=== PATIENT | male | born 1950 | race Caucasian/White ===

== ENCOUNTER 2021-08-14 12:49 | Day surgery (SDC) | payer MEDICARE, OTHER ==
[2021-08-13 08:38] VITALS: BMI 29.2
[~2021-08-14 12:49] MED LIST: MOXIFLOXACIN HCL 0.5% DROPS 3 ML BTL OP PRN; TETRACAINE 0.5% OPHTH (PF) DROPS 4 ML BTL OP PRN; TIMOLOL 0.5% OPHTH DROPS 5 ML BTL OP PRN
[2021-08-14] MEDS: PHENYLEPHRINE 2.5% OPHTH DRP 2ML OP PRN ×4 (13:37→13:57)
[2021-08-14] MEDS: CYCLOPENTOLATE 1% OPHTH SOLN 2 ML BTL OP PRN ×4 (13:42→14:03)
[2021-08-14 13:46] VITALS: TEMP 98.9
[2021-08-14] MEDS ORDERED: LIDOCAINE 1% (10MG/ML) FOR IV START INTRADERMA ONE (13:49)
[2021-08-14] MEDS ORDERED: LACTATED RINGERS 1,000 ML IV ONE (13:49)
[2021-08-14] MEDS ORDERED: MIDAZOLAM 2 MG/2 ML VIAL ONE (14:51)
[2021-08-14] MEDS ORDERED: fentaNYL (PF) 50 MCG/ML 2 ML AMP ONE (14:51)
[2021-08-14] MEDS ORDERED: HYALURONATE SODIUM INTRAOCULAR 1 EACH SYRINGE (12MG/ML) INTRAOCULA ONE (15:03)
[2021-08-14] MEDS ORDERED: BALANCED SALT IRRIG SOLN COMB2 15 ML IRRIG.SOLN INTRAOCULA ONE (15:03)
[2021-08-14] MEDS ORDERED: LIDOCAINE 1% (PF) 10MG/ML VIAL SQ ONE (15:03)
[2021-08-14] MEDS ORDERED: EPINEPHrine (PF) 0.3 ML in BALANCED SALT IRRIG SOLN COMB2 500 ML IRRIGATION ONE (15:04)
--- NOTE | 2021-08-14 15:15 | P.OP ---
Date of Procedure: 08/14/21 Preoperative Diagnosis: NS & CS Postoperative Diagnosis: same Procedure(s) Performed: PIOL, OS Implants: [id number] Anesthesia: MAC Surgeon: Lalit Bob Pathology: none sent Condition: stable Disposition: same day Indications for Procedure: blurry vision Operative Findings: no complications
[2021-08-14 15:39] VITALS: BP 112/67; PULSE 72; RESP 16
--- NOTE | 2021-08-14 18:39 | OP ---
OPERATIVE REPORT DATE OF SURGERY: 08/14/2021. PROCEDURE: Phacoemulsification of cataract and intraocular lens implant of the left eye. PREOPERATIVE DIAGNOSIS: Nuclear sclerosis and cortical sclerosis. POSTOPERATIVE DIAGNOSIS: Nuclear sclerosis and cortical sclerosis. ESTIMATED BLOOD LOSS: Zero. SPECIMEN TAKEN: None. NARRATIVE: After obtaining the appropriate consent, the patient was brought to the Operating Room where the patient was placed under cardiac monitoring and prepped and draped in the usual sterile manner. At the 5 o'clock position a 15 degree super sharp blade was used to create a paracentesis followed by instillation of 1% Xylocaine MPF 50:50 mix with BSS into the anterior chamber. This was followed by Amvisc to stabilize the anterior chamber. At the 3 o'clock position a self-sealing corneal flap incision was created using 2.8 mm gordon keratome. A cystotome was used to initiate a continuous tear capsulorrhexis which was completed with the Utrata forceps. A Binkhorst cannula was used to hydrodissect the lens nucleus followed by hydrodelineation. Phacoemulsification of the lens was performed utilizing phacochop in 17.13 seconds at 18% power. The remaining cortical material was removed using the irrigation aspiration mode followed by additional 1% Xylocaine MPF into the anterior chamber followed by viscoelastic to stabilize the capsular bag. A Bausch [employer] Lomb MX60E 20.5 diopter posterior chamber intraocular lens was placed into the capsular bag without difficulty. The remaining viscoelastic material was removed from the anterior chamber with the irrigation/aspiration. Balanced salt solution was used to normalize the intraocular pressure. The incision was checked for watertight integrity. The patient then received two drops of 0.5% timolol followed by two drops Vigamox, was lightly patched and shielded in the usual manner. There were no complications from the procedure. The patient tolerated the procedure well and was returned to recovery in good condition. MMODL / IJN: [id number] /
== END 2021-08-14 15:47 | disposition home or self-care (01) ==
LOC: OR 12:49 → EDBD 14:15 → OR 15:47
PROVIDERS: ATTEND Ophthalmology
DX: H25.12 Age-related nuclear cataract, left eye (principal)
CPT/HCPCS: 66984; C1780; J2250; J0171; J3010; J2001

== ENCOUNTER 2021-09-04 07:16 | Day surgery (SDC) | payer MEDICARE, OTHER ==
[2021-09-02 11:14] VITALS: BMI 29.4
[2021-09-04] MEDS ORDERED: LACTATED RINGERS 1,000 ML IV SCH (07:52)
[2021-09-04] MEDS ORDERED: LIDOCAINE 1% (10MG/ML) FOR IV START INTRADERMA PRN (07:52)
[2021-09-04] MEDS: CYCLOPENTOLATE 1% OPHTH SOLN 2 ML BTL OP PRN ×3 (08:01→08:13)
[2021-09-04] MEDS: PHENYLEPHRINE 2.5% OPHTH DRP 2ML OP PRN ×3 (08:04→08:16)
[2021-09-04 08:14] VITALS: TEMP 97.7
[2021-09-04] MEDS ORDERED: MIDAZOLAM 2 MG/2 ML VIAL ONE (09:03)
[2021-09-04] MEDS ORDERED: fentaNYL (PF) 50 MCG/ML 2 ML AMP ONE (09:03)
[2021-09-04] MEDS ORDERED: BALANCED SALT IRRIG SOLN COMB2 15 ML IRRIG.SOLN IRRIGATION ONE (09:06)
[2021-09-04] MEDS ORDERED: HYALURONATE SODIUM INTRAOCULAR 1 EACH SYRINGE (12MG/ML) INTRAOCULA ONE (09:07)
[2021-09-04] MEDS ORDERED: LIDOCAINE 1% (PF) 10MG/ML VIAL MISCELLANE ONE (09:07)
[2021-09-04] MEDS ORDERED: EPINEPHrine (PF) 0.3 ML in BALANCED SALT IRRIG SOLN COMB2 500 ML IRRIGATION ONE (09:23)
--- NOTE | 2021-09-04 09:38 | P.OP ---
Date of Procedure: 09/04/21 Preoperative Diagnosis: NS & CS Postoperative Diagnosis: same Procedure(s) Performed: PIOL, OD Implants: [id number] 20.00 Anesthesia: MAC Surgeon: Lalit Bob Pathology: none sent Condition: stable Disposition: same day Indications for Procedure: blurry vision Operative Findings: no complications
[2021-09-04 09:59] VITALS: RESP 16
[2021-09-04 10:00] VITALS: BP 128/76; PULSE 82
--- NOTE | 2021-09-05 13:00 | OP ---
OPERATIVE REPORT DATE OF SURGERY: September 04, 2021. PROCEDURES: Phacoemulsification of cataract and intraocular lens implant of the right eye. SURGEON: Dr. Lalit Bob PREOPERATIVE DIAGNOSIS: Nuclear sclerosis and cortical sclerosis POSTOPERATIVE DIAGNOSIS: Nuclear sclerosis and cortical sclerosis. OPERATION: Clear cornea phacoemulsification of cataract right OD eye. ESTIMATED BLOOD LOSS: Zero. SPECIMEN TAKEN: None. NARRATIVE: After obtaining the appropriate consent, the patient was brought to the Operating Room where the patient was placed under cardiac monitoring and prepped and draped in the usual sterile manner. At the 11 o'clock position a 15 degree super sharp blade was used to create a paracentesis followed by instillation of 1% Xylocaine MPF 50:50 mix with BSS into the anterior chamber. This was followed by Amvisc to stabilize the anterior chamber. At the 9 o'clock position a self-sealing corneal flap incision was created using 2.8 mm gordon keratome. A cystotome was used to initiate a continuous tear capsulorrhexis which was completed with the Utrata forceps. A Binkhorst cannula was used to hydrodissect the lens nucleus followed by hydrodelineation. Phacoemulsification of the lens was performed utilizing phacochop in 22.86 Seconds at 36% power. The remaining cortical material was removed using the irrigation aspiration mode followed by additional 1% Xylocaine MPF into the anterior chamber followed by viscoelastic to stabilize the capsular bag. A Bausch & Lomb MX 60E 20.0 diopter posterior chamber lens was placed into the capsular bag without difficulty. The remaining viscoelastic material was removed from the anterior chamber with the irrigation/aspiration. Balanced salt solution was used to normalize the intraocular pressure. The incision was checked for watertight integrity. The patient then received two drops of 0.5% timolol followed by two drops Vigamox, was lightly patched and shielded in the usual manner. There were no complications from the procedure. The patient tolerated the procedure well and was returned to recovery in good condition. MMODL / IJN: [id number] /
== END 2021-09-04 10:30 | disposition home or self-care (01) ==
LOC: OR 07:16
PROVIDERS: ATTEND Ophthalmology
DX: H25.11 Age-related nuclear cataract, right eye (principal); H25.011 Cortical age-related cataract, right eye; H43.813 Vitreous degeneration, bilateral; H52.01 Hypermetropia, right eye; H52.4 Presbyopia; Z96.1 Presence of intraocular lens; H52.13 Myopia, bilateral; Z98.42 Cataract extraction status, left eye; I25.10 Atherosclerotic heart disease of native coronary artery without angina pectoris; E78.5 Hyperlipidemia, unspecified; N42.9 Disorder of prostate, unspecified; I51.9 Heart disease, unspecified; Z98.890 Other specified postprocedural states; Z83.3 Family history of diabetes mellitus; Z82.49 Family history of ischemic heart disease and other diseases of the circulatory system; Z84.1 Family history of disorders of kidney and ureter; Z82.3 Family history of stroke; Z79.82 Long term (current) use of aspirin; Z79.899 Other long term (current) drug therapy; Z88.8 Allergy status to other drugs, medicaments and biological substances
CPT/HCPCS: 66984; C1780; J2250; J0171; J3010; J2001

== ENCOUNTER 2022-01-11 08:39 | Emergency (ER) | payer MEDICARE, OTHER ==
[2022-01-11 08:51] VITALS: BP 148/84; PULSE 87; RESP 18; TEMP 90
[2022-01-11] MEDS ORDERED: KETOROLAC 15 MG/ML 1 ML VIAL IM STA (08:59)
--- NOTE | 2022-01-11 08:59 | ED ---
General Adult HPI - General Chief complaint: Extremity Injury, Upper Stated complaint: Left arm pain Time Seen by Provider: 01/11/22 08:45 Source: patient, RN notes reviewed, old records reviewed Mode of arrival: ambulatory Limitations: no limitations - History of Present Illness Initial comments: This a 71-year-old male presents emergency Department with some left lateral elbow pain. Patient states he did yard work last week ever since then it's been aggravating him. Patient states the last 2 days been much worse and he found it difficult to sleep at times per patient states movement definitely makes it worse and particular lifting anything with that arm makes it hurt at the lateral back at the epicondyle area. Patient denies any blunt trauma to the area. Patient denies any upper arm pain. Patient said chest pain difficult breathing shortness breath. - Related Data Home Medications Medication Instructions Recorded Confirmed Alfuzosin HCl [Uroxatral] 10 mg PO HS 08/13/21 09/04/21 Aspirin [Adult Low Dose Aspirin EC] 81 mg PO HS 08/13/21 09/04/21 Pantoprazole [Protonix] 40 mg PO HS 08/13/21 09/04/21 Rosuvastatin [Crestor] 10 mg PO HS 08/13/21 09/04/21 Previous Rx's Medication Instructions Recorded Ibuprofen [Motrin] 600 mg PO Q6HR PRN #20 tab 01/11/22 Allergies Allergy/AdvReac Type Severity Reaction Status Date / Time lisinopril AdvReac Cough Verified 01/11/22 08:50 Review of Systems ROS Statement: Those systems with pertinent positive or pertinent negative responses have been documented in the HPI. ROS Other: All systems not noted in ROS Statement are negative. Past Medical History Past Medical History: Eye Disorder, Hyperlipidemia, Prostate Disorder History of Any Multi-Drug Resistant Organisms: None Reported Past Surgical History: Heart Catheterization With Stent, Hernia Repair Additional Past Surgical History / Comment(s): 1970-HERNIA REPAIR W/ UNDESCENDED LT TESTICLE SX, BENIGN PITUATARY GLAND TUMOR REMOVED. L eye cataract surgery in 2021. Past Anesthesia/Blood Transfusion Reactions: No Reported Reaction Date of Last Stent Placement:: 2012 Past Psychological History: No Psychological Hx Reported Smoking Status: Former smoker Past Alcohol Use History: None Reported Past Drug Use History: None Reported - Past Family History Mother Family Medical History: No Reported History General Exam - General Exam Comments Initial Comments: GENERAL Patient is well-developed and well-nourished. Patient is in mild distress. EYES Patient's pupils are equal and round. Extraocular motion is intact SKIN Unremarkable NEURO The patient is alert and oriented 3 PYSCH Patient has normal interpersonal interactions. MUSCULOSKELETAL Left epicondyle region is tender to palpation. Patient's full range of motion at elbow. Limitations: no limitations Course Vital Signs 01/11/22 08:48 Temperature 90 F L Pulse Rate 87 Respiratory 18 Rate Blood Pressure 148/84 O2 Sat by Pulse 97 Oximetry Medical Decision Making - Medical Decision Making Patient received Toradol in the emergency department. Disposition Clinical Impression: Lateral epicondylitis of elbow Disposition: HOME SELF-CARE Condition: Good Instructions (If sedation given, give patient instructions): Tennis Elbow (ED) Additional Instructions: Patient should purchase a tennis elbow brace Prescriptions: Ibuprofen [Motrin] 600 mg PO Q6HR PRN #20 tab PRN Reason: For pain Is patient prescribed a controlled substance at d/c from ED?: No Referrals: Gregor Monzon MD [Primary Care Provider] - 1-2 days Time of Disposition: 09:18
[2022-01-11] MEDS ORDERED: ACET/COD 300 MG/30 MG STARTER PACK 6 TAB BTL PO STA (09:18)
== END 2022-01-11 09:25 | disposition home or self-care (01) ==
LOC: EC 08:39
DX: M77.12 Lateral epicondylitis, left elbow (principal); R07.9 Chest pain, unspecified; R06.02 Shortness of breath; Z95.5 Presence of coronary angioplasty implant and graft; E78.5 Hyperlipidemia, unspecified; Z87.891 Personal history of nicotine dependence; Z88.8 Allergy status to other drugs, medicaments and biological substances; Z79.82 Long term (current) use of aspirin; Y92.007 Garden or yard of unspecified non-institutional (private) residence as the place of occurrence of the external cause; X50.9XXA Other and unspecified overexertion or strenuous movements or postures, initial encounter
CPT/HCPCS: 99284 ×2; 96372 ×2; J1885

== ENCOUNTER 2025-01-01 19:44 | Emergency (ER) | payer MEDICARE, OTHER ==
[2025-01-01 19:48] VITALS: RESP 16
--- NOTE | 2025-01-01 20:05 | ED ---
Abdominal Pain HPI - General Chief Complaint: Abdominal Pain Stated Complaint: R side abd pain Time Seen by Provider: 01/01/25 20:03 Source: patient, RN notes reviewed, old records reviewed Mode of arrival: ambulatory Limitations: no limitations - History of Present Illness Initial Comments: This is a 74-year-old male to the ER for evaluation of a patient presents today for evaluation of significant and severe abdominal pain right-sided abdominal pain and flank pain positive nausea no vomiting no dysuria no diarrhea no fevers cough or congestion no travel history or sick contacts no history of similar pain no history of abdominal surgery patient has a known umbilical hernia no history of colonoscopy MD Complaint: abdominal pain, flank pain -: days(s) Location: RLQ, suprapubic, R flank Radiation: suprapubic, R flank Migration to: RLQ, suprapubic Severity: severe Severity scale (1-10): 10 Quality: stabbing Consistency: constant Improves With: nothing Worsens With: nothing Associated Symptoms: nausea Treatments Prior to Arrival: other (0) - Related Data Home Medications Medication Instructions Recorded Confirmed Alfuzosin HCl [Uroxatral] 10 mg PO HS 08/13/21 09/04/21 Aspirin [Adult Low Dose Aspirin EC] 81 mg PO HS 08/13/21 09/04/21 Pantoprazole [Protonix] 40 mg PO HS 08/13/21 09/04/21 Rosuvastatin [Crestor] 10 mg PO HS 08/13/21 09/04/21 Previous Rx's Medication Instructions Recorded Ibuprofen [Motrin] 600 mg PO Q6HR PRN #20 tab 01/11/22 Allergies Allergy/AdvReac Type Severity Reaction Status Date / Time lisinopril AdvReac Cough Verified 01/01/25 19:48 Review of Systems ROS Statement: Those systems with pertinent positive or pertinent negative responses have been documented in the HPI. ROS Other: All systems not noted in ROS Statement are negative. Past Medical History Past Medical History: Eye Disorder, Hyperlipidemia, Prostate Disorder History of Any Multi-Drug Resistant Organisms: None Reported Past Surgical History: Heart Catheterization With Stent, Hernia Repair Additional Past Surgical History / Comment(s): 1970-HERNIA REPAIR W/ UNDESCENDED LT TESTICLE SX, BENIGN PITUATARY GLAND TUMOR REMOVED. L eye cataract surgery in 2021. Past Anesthesia/Blood Transfusion Reactions: No Reported Reaction Date of Last Stent Placement:: 2012 Past Psychological History: Depression Smoking Status: Former smoker Past Alcohol Use History: None Reported Past Drug Use History: None Reported - Past Family History Mother Family Medical History: No Reported History General Exam Limitations: no limitations General appearance: alert, in no apparent distress Head exam: Present: atraumatic, normocephalic, normal inspection Eye exam: Present: normal appearance, PERRL, EOMI. Absent: scleral icterus, conjunctival injection, periorbital swelling ENT exam: Present: normal exam, mucous membranes moist Neck exam: Present: normal inspection. Absent: tenderness, meningismus, lymphadenopathy Respiratory exam: Present: normal lung sounds bilaterally. Absent: respiratory distress, wheezes, rales, rhonchi, stridor Cardiovascular Exam: Present: regular rate, normal rhythm, normal heart sounds. Absent: systolic murmur, diastolic murmur, rubs, gallop, clicks GI/Abdominal exam: Present: soft, normal bowel sounds. Absent: distended, tenderness, guarding, rebound, rigid Extremities exam: Present: normal inspection, full ROM, normal capillary refill. Absent: tenderness, pedal edema, joint swelling, calf tenderness Back exam: Present: normal inspection Neurological exam: Present: alert, oriented X3, CN II-XII intact Psychiatric exam: Present: normal affect, normal mood Skin exam: Present: warm, dry, intact, normal color. Absent: rash Course Vital Signs 01/01/25 01/01/25 19:45 21:20 Temperature 97.8 F 99.1 F Pulse Rate 94 91 Respiratory 16 16 Rate Blood Pressure 157/79 135/72 O2 Sat by Pulse 95 96 Oximetry - Reevaluation(s) Reevaluation #1: 01/01/25 22:44 Medical records reviewed Reevaluation #2: 01/01/25 22:44 Patient's pain is improved Reevaluation #3: 01/01/25 22:44 Patient informed of results and questions answered Reevaluation #4: Was pt. sent in by a medical professional or institution (, PA, BOND UNDERWRITER, urgent care, hospital, or custodial...) When possible be specific @ -no Did you speak to anyone other than the patient for history (EMS, parent, family, police, friend...)? What history was obtained from this source @ -no Did you review nursing and triage notes (agree or disagree)? Why? @ -agree Are old charts reviewed (outside hosp., previous admission, EMS record, old EKG, old radiological studies, urgent care reports/EKG's, custodial records)? Report findings @ -yes Differential Diagnosis (chest pain, altered mental status, abdominal pain women, abdominal pain men, vaginal bleeding, weakness, fever, dyspnea, syncope, headache, dizziness, GI bleed, back pain, seizure, CVA, palpatations, mental health, musculoskeletal)? @ -prior EKG interpreted by me (3pts min.). @ -yes X-rays interpreted by me (1pt min.). @ -yes negative for acute disease CT interpreted by me (1pt min.). @ -no U/S interpreted by me (1pt. min.). @ -no What testing was considered but not performed or refused? (CT, X-rays, U/S, labs)? Why? @ -none What meds were considered but not given or refused? Why? @ -none Did you discuss the management of the patient with other professionals (professionals i.e. , PA, BOND UNDERWRITER, lab, RT, psych nurse, high school social science teacher, medical device sales, teacher, intelligence officer basic, manager of case)? Give summary @ -no Was smoking cessation discussed for >3mins.? @ -no Was critical care preformed (if so, how long)? @ -no Were there social determinants of health that impacted care today? How? (Homelessness, low income, unemployed, alcoholism, drug addiction, transportation, low edu. Level, literacy, decrease access to med. care, long term, rehab)? @ -none Was there de-escalation of care discussed even if they declined (Discuss DNR or withdrawal of care, Hospice)? DNR status @ -no What co-morbidities impacted this encounter? (DM, HTN, Smoking, COPD, CAD, Cancer, CVA, ARF, Chemo, Hep., AIDS, mental health diagnosis, sleep apnea, morbid obesity)? @ -none Was patient admitted / discharged? Hospital course, mention meds given and route, prescriptions, significant lab abnormalities, going to OR and other pertinent info. @ - Undiagnosed new problem with uncertain prognosis? @ -no Drug Therapy requiring intensive monitoring for toxicity (Heparin, Nitro, Insulin, Cardizem)? @ -no Were any procedures done? @ -no Diagnosis/symptom? @ - Acute, or Chronic, or Acute on Chronic? @ -Acute Uncomplicated (without systemic symptoms) or Complicated (systemic symptoms)? @ -Complicated Side effects of treatment? @ -no Exacerbation, Progression, or Severe Exacerbation? @ -exacerbation Poses a threat to life or bodily function? How? (Chest pain, [place], [place], pneumonia, PE, COPD, DKA, ARF, appy, cholecystitis, CVA, Diverticulitis, Homicidal, Suicidal, threat to staff... and all critical care pts) @ -yes Reevaluation #5: Differential Abdominal Pain Men: Appendicitis, cholecystitis, diverticulosis, ischemic bowel, pancreatitis, hepatitis, UTI, gastroenteritis, AAA, incarcerated hernia, bowel obstruction, constipation, inflammatory bowel, hepatitis, peptic ulcer disease, splenic infarction, perforated viscus, testicular torsion, this is not meant to be an all-inclusive list Medical Decision Making - Medical Decision Making 74 male to the ER for evaluation of severe abdominal pain here in the ER does look like patient does have passed kidney stone, patient was given pain control for home and discharge - Lab Data Result diagrams: 01/01/25 20:22 01/01/25 20:22 Lab Results 01/01/25 01/01/25 01/01/25 Range/Units 20:22 20:22 20:22 WBC 11.71 H (4.50-10.00) 10*3/uL RBC 4.01 L (4.40-5.60) 10*6/uL Hgb 12.8 L (13.0-17.0) g/dL Hct 36.6 L (39.6-50.0) % MCV 91.3 (80.0-97.0) fL MCH 31.9 (27.0-32.0) pg MCHC 35.0 (32.0-37.0) g/dL Plt Count 223 (140-440) 10*3/uL MPV 9.5 (9.5-12.2) fL Immature Gran % (Auto) 0.2 % Neutrophils % 75.5 % Lymphocytes % 12.1 % Monocytes % 9.6 % Eosinophils % 2.1 % Basophils % 0.5 % Immature Gran # 0.02 (0.00-0.04) 10*3/uL Neutrophils # 8.84 H (1.80-7.70) 10*3/uL Lymphocytes # 1.42 (0.90-5.00) 10*3/uL Monocytes # 1.12 H (0.20-1.00) 10*3/uL Eosinophils # 0.25 (0.04-0.35) 10*3/uL Basophils # 0.06 (0.00-0.10) 10*3/uL PT 10.6 (10.0-12.5) sec INR 0.9 (<1.2) APTT 23.0 (22.0-30.0) sec Sodium 140 (137-145) mmol/L Potassium 4.1 (3.5-5.1) mmol/L Chloride 107 (98-107) mmol/L Carbon Dioxide 23 (22-30) mmol/L Anion Gap 10 mmol/L BUN 19 (9-20) mg/dL Creatinine 1.15 (0.66-1.25) mg/dL Est GFR (CKD-EPI)AfAm 73 (>60 ml/min/1.73 sqM) Est GFR (CKD-EPI)NonAf 63 (>60 ml/min/1.73 sqM) Glucose 228 H (74-99) mg/dL Plasma Lactic Acid Sander (0.7-2.0) mmol/L Calcium 9.1 (8.4-10.2) mg/dL Total Bilirubin 0.6 (0.2-1.3) mg/dL AST 25 (17-59) U/L ALT 19 (4-49) U/L Alkaline Phosphatase 101 (38-126) U/L Total Protein 6.5 (6.3-8.2) g/dL Albumin 4.1 (3.5-5.0) g/dL Amylase 40 (30-110) U/L Lipase 50 (23-300) U/L 01/01/25 Range/Units 20:22 WBC (4.50-10.00) 10*3/uL RBC (4.40-5.60) 10*6/uL Hgb (13.0-17.0) g/dL Hct (39.6-50.0) % MCV (80.0-97.0) fL MCH (27.0-32.0) pg MCHC (32.0-37.0) g/dL Plt Count (140-440) 10*3/uL MPV (9.5-12.2) fL Immature Gran % (Auto) % Neutrophils % % Lymphocytes % % Monocytes % % Eosinophils % % Basophils % % Immature Gran # (0.00-0.04) 10*3/uL Neutrophils # (1.80-7.70) 10*3/uL Lymphocytes # (0.90-5.00) 10*3/uL Monocytes # (0.20-1.00) 10*3/uL Eosinophils # (0.04-0.35) 10*3/uL Basophils # (0.00-0.10) 10*3/uL PT (10.0-12.5) sec INR (<1.2) APTT (22.0-30.0) sec Sodium (137-145) mmol/L Potassium (3.5-5.1) mmol/L Chloride (98-107) mmol/L Carbon Dioxide (22-30) mmol/L Anion Gap mmol/L BUN (9-20) mg/dL Creatinine (0.66-1.25) mg/dL Est GFR (CKD-EPI)AfAm (>60 ml/min/1.73 sqM) Est GFR (CKD-EPI)NonAf (>60 ml/min/1.73 sqM) Glucose (74-99) mg/dL Plasma Lactic Acid Sander 1.7 (0.7-2.0) mmol/L Calcium (8.4-10.2) mg/dL Total Bilirubin (0.2-1.3) mg/dL AST (17-59) U/L ALT (4-49) U/L Alkaline Phosphatase (38-126) U/L Total Protein (6.3-8.2) g/dL Albumin (3.5-5.0) g/dL Amylase (30-110) U/L Lipase (23-300) U/L - Radiology Data Radiology results: report reviewed (CT abdomen pelvis positive for recently passed kidney stone), image reviewed Disposition Clinical Impression: Abdominal pain, Kidney stone on right side, Right flank pain Disposition: HOME SELF-CARE Instructions (If sedation given, give patient instructions): Kidney Stones ( ED), Renal Colic (ED), Abdominal Pain (ED) Is patient prescribed a controlled substance at d/c from ED?: No Referrals: Gregor Monzon MD [Primary Care Provider] - 1-2 days Time of Disposition: 22:00
[2025-01-01 20:31] LABS: Basophils # (A) 0.06 10*3/uL (0.00-0.10); Basophils % (A) 0.5 %; Eosinophils # (A) 0.25 10*3/uL (0.04-0.35); Eosinophils % (A) 2.1 %; HCT 36.6 % (39.6-50.0); HGB 12.8 g/dL (13.0-17.0); Lymphocytes # (A) 1.42 10*3/uL (0.90-5.00); Lymphocytes % (A) 12.1 %; MCH 31.9 pg (27.0-32.0); MCHC 35.0 g/dL (32.0-37.0); MCV 91.3 fL (80.0-97.0); Monocytes # (A) 1.12 10*3/uL (0.20-1.00); Monocytes % (A) 9.6 %; Neutrophils # (A) 8.84 10*3/uL (1.80-7.70); Neutrophils % (A) 75.5 %; Platelet Count 223 10*3/uL (140-440); RBC 4.01 10*6/uL (4.40-5.60); RDW 12.0 % (11.5-14.5); WBC 11.71 10*3/uL (4.50-10.00)
[2025-01-01 20:51] LABS: ALT 19 U/L (4-49); African American GFR (CKD) 73 (>60 ml/min/1.73 sqM); Albumin 4.1 g/dL (3.5-5.0); Amylase 40 U/L (30-110); Anion Gap 10 mmol/L; Blood Urea Nitrogen 19 mg/dL (9-20); Calcium 9.1 mg/dL (8.4-10.2); Carbon Dioxide 23 mmol/L (22-30); Chloride 107 mmol/L (98-107); Glucose 228 mg/dL (74-99); Lipase 50 U/L (23-300); Non-African American GFR(CKD) 63 (>60 ml/min/1.73 sqM); Sodium 140 mmol/L (137-145); Total Protein 6.5 g/dL (6.3-8.2)
[2025-01-01] MEDS: PANTOPRAZOLE 40 MG/10 ML VIAL IVP STA (20:51)
[2025-01-01] MEDS: ONDANSETRON 4 MG/2 ML VIAL IVP STA (20:52)
[2025-01-01 20:59] LABS: INR 0.9 (<1.2); Partial Thromboplastin Time 23.0 sec (22.0-30.0); Prothrombin Time 10.6 sec (10.0-12.5)
[2025-01-01 21:19] LABS: AST 25 U/L (17-59); Alkaline Phosphatase 101 U/L (38-126); Potassium 4.1 mmol/L (3.5-5.1)
--- NOTE | 2025-01-01 21:47 | CT ---
EXAMINATION TYPE: CT abdomen pelvis w con DATE OF EXAM: 01/01/2025 9:39 PM COMPARISON: None. CLINICAL INDICATION: Male, 74 years old with history of pain, sharp pain on the R side since yesterda y. Endorses nausea. Denies vomiting. TECHNIQUE:CT scan of the abdomen and pelvis is performed without Oral Contrast and with IV Contrast, patient injected with 100ml mL of Isovue 300. CT DLP: 1089.4 mGycm, Automated exposure control for dose reduction was used. FINDINGS: LUNG BASES-: No visible nodule. No infiltrate. Basilar parenchymal scarring. LIVER/GB: No calcified gallstones. No space occupying hepatic lesion. Biliary tree is of normal ca liber. PANCREAS: No inflammation. No distinct mass. SPLEEN: No splenic enlargement. No lesion seen. ADRENALS: No nodule. No thickening. KIDNEYS/BLADDER: There is mild right-sided hydronephrosis suggested without obstructing calculus visu alized. There is also mild right perinephric stranding. This could reflect recently passed calculus. Correlate clinically. 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 Left renal fossa is unremarkable . No nephrolithiasis. No distinct renal mass. Urinary bladder diverticulum is seen on. Urinary bladd er wall is not thickened. BOWEL: Normal appendix. Normal bowel caliber. No inflammation. Scattered diverticulosis without div erticulitis. Fixed hiatal hernia. GENITAL ORGANS: No gross abnormality. LYMPH NODES: No greater than 1cm abdominal or pelvic lymph nodes are appreciated. AORTA: No significant abnormality. OSSEOUS STRUCTURES: No significant abnormality is seen. OTHER: fat-containing paraumbilical hernia measuring 2.5 cm. IMPRESSION: 1. There is mild right-sided hydronephrosis suggested without obstructing calculus visualized. There is also mild right perinephric stranding. This could reflect recently passed calculus. Correlate clin ically. 2. Diverticulosis without diverticulitis. 3. small to -moderate fixed. [facility], , 01/01/2025 9:45 PM
[2025-01-01] MEDS: KETOROLAC 15 MG/ML 1 ML VIAL IVP STA (22:00)
[2025-01-01] MEDS: cefTRIAXone IN SWFI 1,000 MG/10 ML SYRINGE IVP STA (22:01)
[2025-01-01] MEDS: MORPHINE SULFATE 4 MG/ML SYRINGE IVP STA (22:01)
[2025-01-01] MEDS: TAMSULOSIN 0.4 MG CAP.ER.24H PO STA (22:01)
[2025-01-01] MEDS: SODIUM CHLORIDE 0.9% 1,000 ML IV ONE (22:11)
[2025-01-01] MEDS: CEPHALEXIN 500MG STARTER PACK 4 CAP BTL PO STA (23:10)
[2025-01-01] MEDS: ACET/COD 300 MG/30 MG STARTER PACK 6 TAB BTL PO STA (23:10)
[2025-01-01] MEDS: ONDANSETRON 4 MG ODT STARTER PACK 2 TAB BTL PO STA (23:11)
[2025-01-01 23:17] VITALS: BP 115/66; PULSE 90; TEMP 98
== END 2025-01-01 23:16 | disposition home or self-care (01) ==
LOC: EC 19:44
DX: R10.31 Right lower quadrant pain (principal); N20.0 Calculus of kidney; Z87.891 Personal history of nicotine dependence; Z88.8 Allergy status to other drugs, medicaments and biological substances
CPT/HCPCS: 36415; 80053; 82150; 83605; 83690; 85025; 85610; 85730; 74177; 99284; 96374; 96375; 96361; J2270; J2405; J0696; J1885; S0119; Q9967; J2470